=== PATIENT | female | born 1995 | race Caucasian/White ===

== ENCOUNTER 2017-03-02 14:01 | Emergency (ER) | payer OTHER ==
[~2017-03-02] VITALS: Ht 160 cm; Wt 78.0 kg
--- NOTE | ~2017-03-02 | EKG ---
[address] [address] ELECTROCARDIOGRAM REPORT Name: GAURI ZELAYA Room #: [facility]#: [id number] Admission: 03/02/17 Attend Phys: Discharge: 03/02/17 Date of : [birth year] Report #: [id number] THIS REPORT FOR: //name// [facility] ED Test Date: 2017-03-02 Test Time: 14:10:23 Pat Name: GAURI ZELAYA Department: Room: Gender: F Director Embalmer: MELINDA : 1995 Requested By: Donna Jones Order Number: [id number] MD: Parvez Garnica Measurements Intervals [place] Rate: 99 P: 53 SC: 163 QRS: 77 QRSD: 102 T: 55 QT: 347 QTc: 446 Interpretive Statements Sinus rhythm No significant abnormality No previous ECG available for comparison Electronically Signed On 03-03-2017 8:31:32 CDT by Parvez Garnica [email or web address] <ELECTRONICALLY SIGNED> By: Parvez Garnica MD, [facility] 03/03/17 0831 1410 1410 Parvez Garnica MD, FACC /EPI
[2017-03-02 14:01] VITALS: BP 121/75
[2017-03-02] MEDS ORDERED: PROAIR HFA8.5 GM INH (14:06)
[2017-03-02] MEDS ORDERED: ATIVAN0.5 MG PO (14:06)
== END 2017-03-02 15:11 | disposition home or self-care (01) ==
LOC: ER 14:01
DX: F41.9 Anxiety disorder, unspecified (principal)